=== PATIENT | female | born 1960 | race Caucasian/White ===

== ENCOUNTER 2017-12-01 06:02 | Day surgery (SDC) | payer BC ==
[~2017-12-01] VITALS: Ht 162.6 cm; Wt 68.0 kg
[~2017-12-01 06:02] MED LIST: B-12 IM; B12 5,000 MCG1 EACH SL; BACTRIM,SEPT1 TABLET; CALCITRATE + D1 EACH PO; CALCIUM CITRAT1 EAC5 PO; CALCIUM CITRATE PO; CALCIUM500 M4 PO; CIPRO500 M1; DIFLUCAN100 MG; FIORICET,ESG1 TABLET PO; FLAGYL500 MG; HEMATOGEN SOFT1 EACH PO; KEFLEX500 MG PO; MULTIPLE VITAM1 EACH PO; ONE A DAY WOMENS PO; ONE DAILY FOR1 EAC1 PO; ONE-A-DAY WOME1 EACH PO; PREVACID30 MG PO; Prevacid PO; STOOL SOFTENER100 MG PO; STOOL SOFTENERS PO; THERAGRAN1 TABLET PO; Tylenol Regular Stre PO; VITAMIN B-121000 MC4 SL; VITAMIN B12 SL; VITAMIN D1000 INTUN PO; VITAMIN D31000 UNI2 PO; VITAMIN D5000 INTUN PO; VITRON-C TABLE1 EACH PO; predniSONE PO
[2017-12-01 07:26] VITALS: BP 144/65
[2017-12-01] MEDS ORDERED: ULTRAM50 MG PO (09:46)
[2017-12-01 10:15] VITALS: BP 145/62
== END 2017-12-01 10:42 | disposition home or self-care (01) ==
LOC: SDC 06:02
PROC: 0JB70ZZ Excision of Back Subcutaneous Tissue and Fascia, Open Approach (ICD-10-PCS; principal; 2017-12-01)
DX: D17.1 Benign lipomatous neoplasm of skin and subcutaneous tissue of trunk (principal); Z88.2 Allergy status to sulfonamides
CPT/HCPCS: 88304; 93005; J0690; J2250; J2405; J3010